=== PATIENT | male | born 1970 | race Caucasian/White ===

== ENCOUNTER 2019-08-28 13:17 | Emergency (ER) | payer OTHER, SELFPAY ==
[2019-08-28 13:18] VITALS: BP 139/90; PULSE 85; RESP 17; TEMP 36.7; O2SAT 98; BMI 24.3
--- NOTE | 2019-08-28 13:32 | XRR_ITS ---
PROCEDURE INFORMATION: Exam: XR Chest, 1 View Exam date and time: 08/28/2019 1:45 PM Age: 49 years old Clinical indication: Chest pain; Type not specified; Additional info: Cp TECHNIQUE: Imaging protocol: XR of the chest Views: 1 view. COMPARISON: No relevant prior studies available. FINDINGS: Lungs: Unremarkable. No consolidation. Pleural space: Unremarkable. No pleural effusion. No pneumothorax. Heart/Mediastinum: Unremarkable. No cardiomegaly. Bones/joints: No acute findings. XR/XR chest 1V portable [id number] IMPRESSION: No acute findings.
[2019-08-28 14:06] LABS: Basophils # 0.1 10^3/uL (0.0-0.1); Basophils % 0.7 %; Eosinophils # 0.3 10^3/uL (0.0-0.8); Eosinophils % 2.4 %; Hematocrit 46.4 % (42.0-52.0); Hemoglobin 15.6 g/dL (11.7-16.6); Lymphocytes # 1.8 10^3/uL (0.8-4.8); Lymphocytes % 15.5 %; Mean Corpuscular HGB Conc 33.6 g/dL (30.0-36.0); Mean Corpuscular Hemoglobin 31.8 pg (28.0-34.0); Mean Corpuscular Volume 94.5 fL (80-94); Mean Platelet Volume 9.7 fL (7.4-10.4); Monocytes # 1.4 10^3/uL (0.2-0.9); Monocytes % 11.8 %; Neutrophils # 8.1 10^3/uL (1.8-7.7); Neutrophils % 69.2 %; Nucleated Red Blood Cells % 0 %; Platelet Count 307 10^3/cmm (130-400); Red Blood Count 4.91 10^6/uL (4.1-5.3); Red Cell Distribution Width 12.8 % (12.1-15.1); White Blood Count 11.7 10^3/uL (4.0-10.0)
[2019-08-28 14:28] LABS: D Dimer <= 0.27 ug/mIFEU (0-0.59)
[2019-08-28 14:32] LABS: Alanine Aminotransferase 13 U/L (0-41); Albumin Level 4.6 g/dL (3.5-5.2); Alkaline Phosphatase 91 IU/L (40-130); Anion Gap 14.5 (5-19); Aspartate Amino Transferase 15 U/L (0-40); Blood Urea Nitrogen 10 mg/dL (6-20); Calcium 9.6 mg/dL (8.5-10.5); Carbon Dioxide 26 mmol/L (22-29); Chloride 106 mmol/L (98-107); Globulin 2.2 g/dL (1.3-4.6); Glomerular Filtration Rate 79.1 mL/min (90-130); Glucose 91 mg/dL (65-115); Lipase 24 U/L (13-60); Potassium 4.5 mmol/L (3.5-5.1); Sodium 142 mmol/L (136-145); Total Bilirubin 0.2 mg/dL (0.15-1.2); Total Protein 6.8 g/dL (6.6-8.7)
[2019-08-28 14:33] LABS: Troponin(5th) Baseline 11 ng/mL (0-15)
[2019-08-28 15:24] VITALS: BP 123/83; PULSE 88; RESP 16; O2SAT 97
--- NOTE | 2019-08-28 18:00 | ED_ITS ---
HPI - Chest Pain General: Chief Complaint: Chest Pain Stated Complaint: hurts to bra Time Seen by Provider: 08/28/19 18:00 History of Present Illness: HPI narrative: Patient is a 49-year-old male who comes to the ED with pleuritic chest pain and also some left shoulder blade pain. Patient does smoke cigarettes and his parents have a history of heart disease. Patient pleuritic chest pain and shoulder blade pain started on Monday. Patient did say that he just got over a bad upper respiratory illness about a week ago. 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 He is concerned that it could possibly be a pulled musc le. He denies any fall, injury or trauma. He says his chest is tender and causes pain when he pushes on it. Also left shoulder muscle Is tender when touched. He says whenever he abducts his left arm he feels the chest pain and shoulder Pain. Associated symptoms: Deny abdominal pain, dyspnea, fever(s), nausea, palpitations or vomiting Review of Systems Const: Denies: fever, chills or fatigue Eyes: Denies: change in vision or eye discomfort ENMT: Denies: throat pain, painful swallowing, nasal discharge or nasal congestion Card: Reports: chest pain (pleuritic); Denies: palpitations, edema, swelling of feet/ankles, shortness of breath on exertion or shortness of breath when lying down Resp: Denies: shortness of breath, productive cough or non-productive cough GI: Denies: abdominal pain, nausea, vomiting, diarrhea, constipation or blood in stool : Denies: flank pain, difficulty urinating, painful urination or blood in urine Musc: Reports: joint pain (left shoulder); Denies: neck pain, back pain or extremity swelling Skin/Breast: Denies: rash or new lesion Neuro: Denies: headache, numbness in extremities or weakness in extremities PFSH ED PFSH: Social History Smoking and tobacco status: current every day smoker Physical Exam Narrative: EXAM NARRATIVE: Pt is a 49 y/o male who is sitting comfortably when I entered the room. He was in no acute distress or pain. Const: COMMON NORMALS: oriented x3 HENMT: COMMON NORMALS: normocephalic HEAD & SCALP: normocephalic MOUTH: oral and palatal mucosa normal THROAT: posterior oropharynx normal and uvula midline Neck/C-Spine: COMMON NORMALS: supple GENERAL: Yes normal visual inspection Chest: CHEST: Yes tenderness costochondral junction Resp: COMMON NORMALS: normal respiratory effort, no retractions, no use of accessory muscles and clear to auscultation bilaterally AUSCULTATION: clear to auscultation bilaterally Cardio: COMMON NORMALS: regular rate, regular rhythm, S1 normal heart sound, S2 normal heart sound, no gallops, no clicks, no murmurs and peripheral pulses 2+ throughout RATE: regular rate RHYTHM: regular rhythm HEART SOUNDS: S1 normal and S2 normal PERIPHERAL PULSES: pulses 2+ throughout GI: COMMON NORMALS: normal to inspection, nondistended, normoactive bowel sounds, soft to palpation, non-tender and no masses PALPATION: Yes soft : COMMON NORMALS: Yes no CVA tenderness BLADDER/KIDNEY EXAM: Yes no CVA tenderness Back/Pelvis: COMMON NORMALS: no CVA tenderness Extremity: COMMON NORMALS: normal to inspection and full ROM LEFT UPPER EXTREMITY: Yes shoulder joint Left shoulder joint: Yes inspection (normal), Yes palpation (muscular tenderness on anterior and posterior aspect of left shoulder), Yes ROM (normal) and Yes neurovascular exam (intact) Neuro: COMMON NORMALS: oriented x3 and moves all extremities Skin: COMMON NORMALS: no rashes or lesions noted GENERAL SKIN EXAM: no rashes or lesions noted and dry skin Course ED course: Pt's Heart Score is 2. Vital Signs: Vital signs: Vital Signs Temperature 98.1 F 08/28/19 13:18 Pulse Rate 74 08/28/19 19:35 Respiratory Rate 16 08/28/19 19:35 Blood Pressure 142/74 08/28/19 19:35 Pulse Oximetry 98 08/28/19 19:35 MDM - Chest Pain Lab Data: Attestation: I reviewed the patient's lab results. Labs: Lab Results 08/28/19 08/28/19 08/28/19 Range/Units 14:00 14:00 14:00 WBC 11.7 H (4.0-10.0) 10^3/ uL RBC 4.91 (4.1-5.3) 10^6/u L Hgb 15.6 (11.7-16.6) g/dL Hct 46.4 (42.0-52.0) % MCV 94.5 H (80-94) fL MCH 31.8 (28.0-34.0) pg MCHC 33.6 (30.0-36.0) g/dL RDW 12.8 (12.1-15.1) % Plt Count 307 (130-400) 10^3/c mm MPV 9.7 (7.4-10.4) fL Neut % (Auto) 69.2 % Lymph % (Auto) 15.5 % [place] % (Auto) 11.8 % Eos % (Auto) 2.4 % Baso % (Auto) 0.7 % Neut # (Auto) 8.1 H (1.8-7.7) 10^3/u L Lymph # (Auto) 1.8 (0.8-4.8) 10^3/u L [place] # (Auto) 1.4 H (0.2-0.9) 10^3/u L Eos # (Auto) 0.3 (0.0-0.8) 10^3/u L Baso # (Auto) 0.1 (0.0-0.1) 10^3/u L Nucleated RBC % (a uto) 0 % Nucleated RBCs # 0.0 /100WBC D-Dimer <= 0.27 (0-0.59) ug/mIFE U Sodium 142 (136-145) mmol/L Potassium 4.5 (3.5-5.1) mmol/L Chloride 106 (98-107) mmol/L Carbon Dioxide 26 (22-29) mmol/L Anion Gap 14.5 (5-19) BUN 10 (6-20) mg/dL Creatinine 1.0 (0.7-1.2) mg/dL GFR Calculation 79.1 L (90-130) mL/min Glucose 91 (65-115) mg/dL Calcium 9.6 (8.5-10.5) mg/dL Total Bilirubin 0.2 (0.15-1.2) mg/dL AST 15 (0-40) U/L ALT 13 (0-41) U/L Alkaline Phosphata se 91 (40-130) IU/L Troponin T Baselin e (0-15) ng/mL Total Protein 6.8 (6.6-8.7) g/dL Albumin 4.6 (3.5-5.2) g/dL Globulin 2.2 (1.3-4.6) g/dL Lipase 24 (13-60) U/L 08/28/19 Range/Units 14:00 WBC (4.0-10.0) 10^3/ uL RBC (4.1-5.3) 10^6/u L Hgb (11.7-16.6) g/dL Hct (42.0-52.0) % MCV (80-94) fL MCH (28.0-34.0) pg MCHC (30.0-36.0) g/dL RDW (12.1-15.1) % Plt Count (130-400) 10^3/c mm MPV (7.4-10.4) fL Neut % (Auto) % Lymph % (Auto) % [place] % (Auto) % Eos % (Auto) % Baso % (Auto) % Neut # (Auto) (1.8-7.7) 10^3/u L Lymph # (Auto) (0.8-4.8) 10^3/u L [place] # (Auto) (0.2-0.9) 10^3/u L Eos # (Auto) (0.0-0.8) 10^3/u L Baso # (Auto) (0.0-0.1) 10^3/u L Nucleated RBC % (a uto) % Nucleated RBCs # /100WBC D-Dimer (0-0.59) ug/mIFE U Sodium (136-145) mmol/L Potassium (3.5-5.1) mmol/L Chloride (98-107) mmol/L Carbon Dioxide (22-29) mmol/L Anion Gap (5-19) BUN (6-20) mg/dL Creatinine (0.7-1.2) mg/dL GFR Calculation (90-130) mL/min Glucose (65-115) mg/dL Calcium (8.5-10.5) mg/dL Total Bilirubin (0.15-1.2) mg/dL AST (0-40) U/L ALT (0-41) U/L Alkaline Phosphata se (40-130) IU/L Troponin T Baselin e 11 (0-15) ng/mL Total Protein (6.6-8.7) g/dL Albumin (3.5-5.2) g/dL Globulin (1.3-4.6) g/dL Lipase (13-60) U/L Imaging Data^: CXR: Attestation: I personally reviewed and interpreted this imaging study as follows: Radiologist's impression: Reason: cp [address] [address] XRay Report Signed Patient: Celestine Spears Unit #: [id number] : 1970 Age/Sex: 49 / M ADM Date: 08/28/19 Loc: ER Room/Bed: Attending Dr: Ordering Provider/Ordering MD: Abigail Logan MD Date of Service: 08/28/19 Procedure(s): XR chest 1V portable [id number] Accession Number(s): [id number] Report Number: [id number] PROCEDURE INFORMATION: Exam: XR Chest, 1 View Exam date and time: 08/28/2019 1:45 PM Age: 49 years old Clinical indication: Chest pain; Type not specified; Additional info: Cp TECHNIQUE: Imaging protocol: XR of the chest Views: 1 view. COMPARISON: No relevant prior studies available. FINDINGS: Lungs: Unremarkable. No consolidation. Pleural space: Unremarkable. No pleural effusion. No pneumothorax. Heart/Mediastinum: Unremarkable. No cardiomegaly. Bones/joints: No acute findings. XR/XR chest 1V portable [id number] IMPRESSION: No acute findings. Dictated By: Iván Olmos MD Signed By: Iván Olmos MD Signed Date/Time: 08/28/19 142 DD/ 23 Discharge Plan Discharge Patient Disposition: Home, Self-Care Clinical Impression: Costochondritis, acute Muscle strain of shoulder region Qualifiers: Encounter type: initial encounter Laterality: left Qualified Code(s): S46.912A - Strain of unspecified muscle, fascia and tendon at shoulder and upper arm level, left arm, initial encounter Condition: Stable Prescriptions: No Action No Known Home Medications RF: 0 Discharge Orders: Discharge Order (Routine); Ordered 08/28/19 Ordered By: Johnnie Tucker Referrals: Naif Moreland DO [Primary Care Provider] - Discharge Diet: Regular Discharge Activity: Resume usual activity Patient Instructions: Costochondritis - Adult Activity Restrictions/Additional Instructions: Follow-up with your PCP in 7-10 days for reevaluation. Take ibuprofen or naproxen to help with pain. He can apply ice on her shoulder and painful chest area to Help with symptoms. Drink plenty of fluids and stay hydrated. Discharge Date/Time: 08/28/19 19:40 Coding Level of Care Code ED Slurry Control Tender for Chg Fwd Exam Comprehensive
[2019-08-28] MEDS: aspirin 81 mg Chew Tablet 324 MG PO (18:20)
[2019-08-28] MEDS: orphenadrine 30 mg/mL Inj 2 mL 60 MG IM (18:21)
[2019-08-28] MEDS: ketorolac 30 mg/mL INJ IM (18:21)
[2019-08-28 19:35] VITALS: BP 142/74; PULSE 74; RESP 16; O2SAT 98
== END 2019-08-28 19:40 | disposition home or self-care (01) ==
PROVIDERS: Emergency Medicine; Emergency Provider Physician Assistant; Family Provider Family Medicine; PCP Family Medicine
DX: M94.0 Chondrocostal junction syndrome [Tietze] (principal); F17.200 Nicotine dependence, unspecified, uncomplicated
CPT/HCPCS: 36415; 71045; 80053; 83690; 84484; 85025; 85378; 96372; 99281; 99283; J1885; J2360

== ENCOUNTER 2021-11-10 17:18 | Outpatient (CLI) | payer OTHER, SELFPAY ==
--- NOTE | 2021-11-10 17:34 | MR_ITS ---
WS: [id number] MRI CERVICAL SPINE NONCONTRAST TECHNIQUE: Sagittal T1, T2 and STIR imaging. Axial T2, gradient, and fiesta imaging. CLINICAL INFORMATION: NECK PAIN RADIATING TO RIGHT SHOULDER COMPARISON: None. FINDINGS: Straightening of the normal cervical lordosis. Cord signal is normal. Disc space narrowing worse at C 4-C5 and C5-C6. C2-C3: Normal. C3-C4: Mild LEFT and no significant RIGHT foraminal narrowing. Spinal canal is patent. C4-C5: Moderate RIGHT and mild LEFT foraminal narrowing. Disc osteophyte complex with mild central ca nal stenosis. Uncovertebral joint hypertrophy. Mild facet arthropathy. C5-C6: Disc osteophyte complexe with endplate ridging. Mild central canal stenosis. Uncovertebral rosmery nt hypertrophy. Mild facet arthropathy. Moderate to severe LEFT and moderate RIGHT bony foraminal niels rowing. C6-C7: Disc osteophyte complex endplate ridging. Moderate bilateral foraminal narrowing LEFT greater than RIGHT. Mild facet arthropathy. C7-T1: No significant disc bulging. Incidental hemangioma LEFT posterior C7 vertebral body. Spinal ca nal and foramen are patent. Visualized brain stem structures: Normal. Prevertebral soft tissues: Normal. MR/MR cervical spin wo con* [id number] IMPRESSION: 1. Straightening of the normal cervical lordosis. Cord signal is normal. 2. Mild central canal stenosis with disc osteophyte complexes at C4-C5 and C5- C6 with slight effacement of the ventral thecal sac and slight contact of the c ervical cord worse at C5-C6. Slight retrolisthesis C5 on C6. 3. Moderate to severe bony foraminal narrowing LEFT C5-C6. 4. Moderate multilevel bony foraminal narrowing worse at RIGHT C4-C5, RIGHT C5 -C6, and bilateral C6-C7.
== END 2021-11-10 17:19 | disposition home or self-care (01) ==
LOC: RAD 17:21
PROVIDERS: Family Provider Family Medicine; PCP Family Medicine; Visit Provider Emergency Medicine Emergency Medical Services
DX: M48.02 Spinal stenosis, cervical region (principal); M25.78 Osteophyte, vertebrae
CPT/HCPCS: 72141

== ENCOUNTER → 2021-12-29 10:50 | Outpatient (BNVA) | payer OTHER, SELFPAY | PROVIDERS: Family Provider Family Medicine; PCP Family Medicine; Visit Provider Anesthesiology Pain Medicine | DX: M54.12 Radiculopathy, cervical region (principal); M47.812 Spondylosis without myelopathy or radiculopathy, cervical region; M79.601 Pain in right arm; M79.602 Pain in left arm; F17.210 Nicotine dependence, cigarettes, uncomplicated | CPT/HCPCS: 99205 ==

== ENCOUNTER → 2022-02-28 09:46 | Outpatient (BNVA) | payer OTHER, SELFPAY | PROVIDERS: Family Provider Family Medicine; PCP Family Medicine; Visit Provider Anesthesiology Pain Medicine | DX: M79.601 Pain in right arm (principal); M79.602 Pain in left arm; F17.210 Nicotine dependence, cigarettes, uncomplicated; M54.12 Radiculopathy, cervical region; M47.812 Spondylosis without myelopathy or radiculopathy, cervical region | CPT/HCPCS: 99214 ==

== ENCOUNTER → 2022-03-16 13:24 | Outpatient (BNVA) | payer OTHER, SELFPAY | PROVIDERS: Family Provider Family Medicine; PCP Family Medicine; Visit Provider Anesthesiology Pain Medicine | DX: M54.12 Radiculopathy, cervical region (principal) | CPT/HCPCS: 62321; J1100 ==

== ENCOUNTER → 2022-03-30 09:06 | Outpatient (BNVA) | payer OTHER, SELFPAY | PROVIDERS: Family Provider Family Medicine; PCP Family Medicine; Visit Provider Anesthesiology Pain Medicine | DX: M54.12 Radiculopathy, cervical region (principal); M47.812 Spondylosis without myelopathy or radiculopathy, cervical region; M79.601 Pain in right arm; M79.602 Pain in left arm; F17.210 Nicotine dependence, cigarettes, uncomplicated | CPT/HCPCS: 99214 ==

== ENCOUNTER → 2022-04-19 13:34 | Outpatient (BNVA) | payer OTHER, SELFPAY | PROVIDERS: Family Provider Family Medicine; PCP Family Medicine; Visit Provider Orthopaedic Surgery | DX: M54.12 Radiculopathy, cervical region (principal) | CPT/HCPCS: 72050; 99204 ==

== ENCOUNTER 2022-05-02 06:46 | Day surgery (SDC) | payer OTHER, SELFPAY ==
[2022-04-29 15:36] VITALS: BMI 23.7
[2022-05-02] VITALS (16 sets, daily range): BP systolic 102–142; BP diastolic 67–98; PULSE 66–74; RESP 13–18; TEMP 36.1–36.6; O2SAT 95–99
--- NOTE | 2022-05-02 | XR_ITS ---
WS: [id number] C-ARM RADIOGRAPHS CERVICAL SPINE; 4 IMAGES HISTORY: ACDF C4-5, C5-6 COMPARISON: 04/19/2022 Anterior cervical fusion from C4 through C6. Interbody spacers at C4-5 and C5-6. Patient is intubated . XR/XR cervical spine 3V* [id number] IMPRESSION: Intraoperative imaging during anterior cervical fusion.
--- NOTE | 2022-05-02 | SCC_ITS ---
Procedure done: 1. Anterior diskectomy C4/5 2. Anterior discectomy C5/6 3. Insertion of cage C4/5 4. Insertion of Cage C5/6 5. Instrumentation with anterior plate from C4-6 6. Use of allograft 16.0 seconds of fluoroscopic guidance, for a cumulative dose of 0.72 mGy, was provided to Dr. Sheffield by the radiology department. C-arm images of the cervical spine were saved for the patient's permanent record. ALBANIAD
--- NOTE | 2022-05-02 07:42 | ANES.PREANE2 ---
Pre-Anesthetic Assessment Height/Weight: Height 1.85 m Weight 81.647 kg Temp Pulse Resp BP Pulse Ox O2 Del Method 97.8 F 71 18 142/72 98 05/02/22 07:09 05/02/22 07:09 05/02/22 07:09 05/02/22 07:21 05/02/22 07:09 05/02/22 07:09 Preop Diagnosis: Cervical spondylosis with radiculopathy Operation Date: 05/02/22 08:25 Proposed Procedures p Anterior Cervical Discectomy & Fusion C4/5 C5/6 [id number]/M47.22(Not Applicable) - Sukhdeep Sheffield, DO Familial anesthetic complications: None Was Beta Hugo taken within 24 hours: N/A Was Clonidine taken within 24 hours: N/A Last intake: Intake Last Liquid Date 05/01/22 Last Liquid Time 21:00 Last Solid Date 05/01/22 Last Solid Time 17:00 Social Tobacco and No alcohol Exam alert, oriented x 3, clear to auscultation bilaterally and regular rate & rhythm Airway Mallampati: Class II Dentition: full Pulmonary None reported CV/HEM None reported None reported Hepatic None reported GI None reported Metabolic None reported Musc/skel Osteoarthritis/DJD Neuropsych None reported Anesthetic Plan ASA status: 2 Anesthesia: General Risk of > 500 ml blood loss (7ml/kg in children): No Medications/Allergies Home Medications Medication Instructions Recorded Confirmed Last Taken Type acetaminophen 500 mg capsule 500 mg PO Q6H PRN Pain 05/12/21 04/29/22 Unknown History Allergies Allergy/AdvReac Type Severity Reaction Status Date / Time No Known Allergies Allergy Verified 05/02/22 07:03 [facility] Anesthesia Social History Smoking and tobacco status: current every day smoker cigarettes Packs smoked per day: 1 Alcohol intake: never History of recent travel: No Data Anesthesia Cardiac Studies: No Data to Display
[2022-05-02] MEDS: sodium chloride 0.9% 1,000 ML 30 ML IV (07:47)
--- NOTE | 2022-05-02 07:54 | W.PM.OPSUD ---
Surgery/Procedure H&P Update DATE OF PROCEDURE: May 02, 2022 DATE H&P PERFORMED: 04/19/22 H&P UPDATE INFORMATION: I have reviewed H&P completed within last 30 days, I have examined patient prior to procedure and No changes to prior documentation PREOP DIAGNOSIS: Cervical spondylosis with radiculopathy PLANNED PROCEDURE: Operation Date: 05/02/22 08:25 Proposed Procedures p Anterior Cervical Discectomy & Fusion C4/5 C5/6 [id number]/66099/M47.22(Not Applicable) - Sukhdeep Sheffield DO
[2022-05-02] MEDS: ceFAZolin 2,000 MG in sodium chloride 0.9% (plus) 50 ML 100 MG IV (08:30)
[2022-05-02] MEDS: meperidine 50 mg/mL INJ 12.5 MG IVP (10:52)
--- NOTE | 2022-05-02 10:55 | P.OP_ITS ---
Operative Report Date of procedure: May 02, 2022 Pre-op diagnosis: Preop Diagnosis Cervical spondylosis with radiculopathy Post-op diagnosis: same Procedure done: 1. Anterior diskectomy C4/5 2. Anterior discectomy C5/6 3. Insertion of cage C4/5 4. Insertion of Cage C5/6 5. Instrumentation with anterior plate from C4-6 6. Use of allograft Surgeon: Sukhdeep Sheffield Estimated blood loss (mL): 10 Procedure: 1. Anterior diskectomy C4/5 2. Anterior discectomy C5/6 3. Insertion of cage C4/5 4. Insertion of Cage C5/6 5. Instrumentation with anterior plate from C4-6 6. Use of allograft The patient was taken to the operating room, where he underwent general endotracheal anesthesia without complications. He was then positioned supine on the operating table, and all areas of impingement were well padded. The arms were carefully padded and tucked at his sides. A roll was placed between the shoulder blades.. An x-ray was done to determine the appropriate level for the skin incision. The entire neck was then sterilely prepped and draped in the usual fashion. Neuromonitoring was attached prior to prepping. A transverse skin incision was made and carried down to the platysma muscle. This was then split in line with its fibers. Blunt dissection was carried down medial to the carotid sheath and lateral to the trachea and esophagus until the anterior cervical spine was visualized. A needle was placed into a disc and an x-ray was done to determine its location. The longus colli muscles were then elevated bilaterally with the electrocautery unit. Self-retaining retractors were placed deep to the longus colli muscle. Attention was brought to the C4/5 level that was confirmed on x-ray. A caspar pin was placed into the C4 vertebrae and the C5 vertebrae. The disk space was then distracted. The microscope was then brought in. A radical anterior discectomies were performed at C4/5. This included complete removal of the anterior annulus, nucleus, and posterior annulus. The posterior longitudinal ligament was removed as were the posterior osteophytes. Foraminotomies were then accomplished bilaterally. This was done using a high speed kimmie, kerrison rongeurs and curretes Once all of this was accomplished, the curved currette was used to check for any residual compression. The central canal was wide open as were the foramen. A high-speed bur was used to remove the cartilaginous endplates above and below the interspace. Bleeding cancellous bone was exposed. The disc space were measured and appropriate size cage were placed sterilely onto the field. Allograft graft was packed into the cages. The cage was then placed and there was good juxtaposition against the bleeding decorticated surfaces and good distraction of each interspace. Attention was brought to the next interspace. The [place] pins were removed. Bone wax was used to prevent any bleeding from occurring at the pin sites. Attention was brought to the C5/6 level that was confirmed on x-ray. A caspar pin was placed into the C5 vertebrae and the C6 vertebrae. The disk space was then distracted. The microscope was then brought in. A radical anterior discectomies were performed at C5/6. This included complete removal of the anterior annulus, nucleus, and posterior annulus. The posterior longitudinal ligament was removed as were the posterior osteophytes. Foraminotomies were then accomplished bilaterally. This was done using a high speed kimmie, kerrison rongeurs and curretes Once all of this was accomplished, the curved currette was used to check for any residual compression. The central canal was wide open as were the foramen. A high-speed bur was used to remove the cartilaginous endplates above and below the interspace. Bleeding cancellous bone was exposed. The disc space were measured and appropriate size cage were placed sterilely onto the field. Allograft graft was packed into the cages. The cage was then placed and there was good juxtaposition against the bleeding decorticated surfaces and good distraction of each interspace. Attention was brought to the next interspace. The [place] pins were removed. Bone wax was used to prevent any bleeding from occurring at the pin sites. The appropriate size anterior cervical locking plate was chosen and bent into gentle lordosis. Two screws were then placed into each of the vertebral bodies at C4, C5 and C6. There was excellent purchase. A final x-ray was done confirming good position of the hardware and Cages. The locking screws were then applied, also with excellent purchase. Following a final copious irrigation, there was good hemostasis and no dural leaks. The carotid pulse was strong. The wounds were then closed in layers using 2-0 Vicryl suture for the platysma muscle, 2-0 Vicryl suture for the subcutaneous tissue, and 4-0 monocryl suture in a subcuticular skin closure. Glue was placed followed by application of a sterile dressing. The drain was hooked to bulb suction. A soft collar was applied. The patient was then carefully returned to the supine position on his hospital bed where he was reversed and extubated and taken to the recovery room having tolerated the procedure well.
--- NOTE | 2022-05-02 11:03 | SUR.PHASEI ---
1024 SCDS ON PUMP AND PUMP WORKING
--- NOTE | 2022-05-02 11:42 | SUR.PHASEII ---
patient awake, drowsy. sat on 2L O2 is 97. patients dressing to anterior neck is dry and intact. patient states throat feels sore and like he has a lump in his throat. no swelling noted at this time. patient is talking. family members at bedside.
--- NOTE | 2022-05-02 12:11 | PC.NURSE ---
patient complains of lump in throat. nighat hard to swallow. no difficulty with breathing noted. no bleeding to sight noted. Dr. Sheffield in to see patient. No concerns noted. Patient okayed to go home.
[2022-05-02] MEDS: HYDROcodone-acetaminophen 5-325 mg Tablet 1 TAB PO (12:19)
--- NOTE | 2022-05-02 13:50 | ANE.PACU2 ---
Inpatient post-anesthesia follow up: Airway intact: Yes Vital signs: Temperature 98 F Pulse Rate 66 Respiratory Rate 18 Blood Pressure 141/67 Pulse Oximetry 97 Oxygen Delivery Me thod Room Air Oxygen Flow Rate 2 Fraction of Inspir ed Oxygen Hydration adequate: Yes Nausea and vomiting: No Pain level: 1 Mental status: Baseline
== END 2022-05-02 12:46 | disposition home or self-care (01) ==
PROVIDERS: PCP Emergency Medicine Emergency Medical Services; Visit Provider Orthopaedic Surgery
PROC: 0RB30ZZ Excision of Cervical Vertebral Disc, Open Approach (ICD-10-PCS; CPT 22551; principal; 2022-05-02 08:15)
DX: M47.22 Other spondylosis with radiculopathy, cervical region (principal); F17.210 Nicotine dependence, cigarettes, uncomplicated
CPT/HCPCS: 22551; 22552; 22845; 22853 ×2; 72040; 76000; C1713; C9359; J0131; J0330; J0690; J1100; J1170; J2175; J2370; J2405; J2704; J3010; J3490; J7030

== ENCOUNTER → 2022-05-17 10:32 | Outpatient (BNVA) | payer OTHER, SELFPAY | PROVIDERS: PCP Emergency Medicine Emergency Medical Services; Visit Provider Physician Assistant | DX: M47.812 Spondylosis without myelopathy or radiculopathy, cervical region (principal); Z47.89 Encounter for other orthopedic aftercare; Z98.1 Arthrodesis status | CPT/HCPCS: 72040; 99024 ==

== ENCOUNTER → 2022-06-14 10:51 | Outpatient (BNVA) | payer OTHER, SELFPAY | PROVIDERS: PCP Emergency Medicine Emergency Medical Services; Visit Provider Physician Assistant | DX: Z98.1 Arthrodesis status (principal) | CPT/HCPCS: 72040; 99024 ==